=== PATIENT | male | born 1960 | race American Indian/Alaskan Native ===

== ENCOUNTER 2017-03-05 15:27 | Outpatient (CLI) | payer MEDICAID ==
--- NOTE | 2017-03-06 08:16 | XRay Report ---
Left ankle 3 views. Findings: There are no fractures or other acute findings. Small spur is seen arising from the plantar surface of the os calcis. Vascular calcifications are noted. Impression: No acute findings.
--- NOTE | 2017-03-06 08:17 | XRay Report ---
LEFT SHOULDER: History: Shoulder pain. Routine views demonstrate normal bony and soft tissue structures with normal joint alignment of the shoulder. IMPRESSION: Normal study.
--- NOTE | 2017-03-06 08:18 | XRay Report ---
LEFT HIP: History: Left hip pain. The bony architecture is intact without evidence of fracture or dislocation. No significant soft tissue abnormality is seen. IMPRESSION: Normal left hip.
--- NOTE | 2017-03-06 09:31 | XRay Report ---
LUMBAR SPINE RADIOGRAPHS: INDICATION: Lumbago with left-sided sciatica. Stroke in January 2016. COMPARISON: None similar. FINDINGS: AP, oblique and lateral lumbar spine radiographs demonstrate well segmented lumbar vertebrae, preserved in stature and alignment. Mild multilevel vertebral body degenerative spurring. Moderate mid to lower lumbar facet arthropathy also suspected. Moderate L5-S1 and possibly mild L3-L4 disc narrowing. No evidence of a pars defect. Intact SI joint. Nonobstructive bowel gas pattern. A surgical clip projects between the left 11th and 12 ribs. CONCLUSION: Lumbar spondylosis without acute radiographic abnormality, as described. Thank you for the opportunity to participate in this patient's care.
== END 2017-03-05 15:28 | disposition home or self-care (01) ==
LOC: XRAY 15:27
PROVIDERS: ATTEND Emergency Medicine
DX: M47.816 Spondylosis without myelopathy or radiculopathy, lumbar region (principal); M77.32 Calcaneal spur, left foot; M25.872 Other specified joint disorders, left ankle and foot; M12.88 Other specific arthropathies, not elsewhere classified, other specified site
CPT/HCPCS: 72110

== ENCOUNTER 2018-06-19 07:28 | Emergency (ER) | payer MEDICAID ==
--- NOTE | 2018-06-19 07:45 | Emergency Department Report ---
ED Psych HPI - General Stated Complaint: SUICIDAL THOUGHTS Time Seen by Provider: 06/19/18 07:42 Source: patient Mode of arrival: Ambulatory Limitations: No Limitations - History of Present Illness Initial Comments: Patient is a 57-year-old male that presents emergency room with complaints of suicidal ideations with plan. Patient states he wants to cut his wrist. Patient states the thoughts started this morning. Patient states he's had these thoughts about 5 or 6 years ago and he cut his left wrist. Patient has not had thoughts of suicide for a long time but has been under an abnormal amount of stress and making his thoughts of hurting himself have come back. The patient denies homicidal ideations. Patient denies audio and visual hallucinations. Patient denies physical complaints. Patient denies chest pain and shortness of breath. MD Complaint: suicidal ideation -: Sudden Associated Psychiatric Symptoms: depression, suicidal ideation History of same: Yes Quality: constant Improves With: none Worsens With: none Context: significant life stressor Associated Symptoms: denies other symptoms. denies: confusion, headache, shortness of breath, nausea, vomiting, syncope, insomnia, other Treatments Prior to Arrival: none, placed on mental he If Self Harm: admits thoughts of, has plan - Related Data Allergies Allergy/AdvReac Type Severity Reaction Status Date / Time No Known Allergies Allergy Unverified 03/05/17 15:04 ED Review of Systems ROS: Stated complaint: SUICIDAL THOUGHTS Other details as noted in HPI Constitutional: denies: chills, fever Eyes: denies: eye pain, eye discharge, vision change ENT: denies: ear pain, throat pain Respiratory: denies: cough, shortness of breath, wheezing Cardiovascular: denies: chest pain, palpitations Endocrine: no symptoms reported Gastrointestinal: denies: abdominal pain, nausea, diarrhea Genitourinary: denies: urgency, dysuria Musculoskeletal: denies: back pain, joint swelling, arthralgia Skin: denies: rash, lesions Neurological: denies: headache, weakness, paresthesias Psychiatric: depression, suicidal thoughts. denies: anxiety, auditory hallucinations, visual hallucinations, homicidal thoughts Hematological/Lymphatic: denies: easy bleeding, easy bruising ED Past Medical Hx - Past Medical History Previous Medical History?: Yes Hx Hypertension: Yes Hx CVA: Yes Hx Arthritis: Yes Additional medical history: high cholesterol - Surgical History Past Surgical History?: No - Family History Family history: no significant - Social History Smoking Status: Former Smoker Substance Use Type: None ED Physical Exam - General Limitations: No Limitations General appearance: alert, in no apparent distress - Head Head exam: Present: atraumatic, normocephalic - Eye Eye exam: Present: normal appearance - ENT ENT exam: Present: mucous membranes moist - Neck Neck exam: Present: normal inspection - Respiratory Respiratory exam: Present: normal lung sounds bilaterally. Absent: respiratory distress - Cardiovascular Cardiovascular Exam: Present: regular rate, normal rhythm. Absent: systolic murmur, diastolic murmur, rubs, gallop - GI/Abdominal GI/Abdominal exam: Present: soft, normal bowel sounds - Rectal Rectal exam: Present: deferred - Extremities Exam Extremities exam: Present: normal inspection - Back Exam Back exam: Present: normal inspection - Neurological Exam Neurological exam: Present: alert, oriented X3 - Psychiatric Psychiatric exam: Present: flat affect, suicidal ideation - Skin Skin exam: Present: warm, dry, intact, normal color. Absent: rash ED Course Vital Signs 06/19/18 06/19/18 07:50 10:22 Temperature 98.7 F Pulse Rate 89 Respiratory 17 18 Rate Blood Pressure 135/85 O2 Sat by Pulse 99 95 Oximetry - Reevaluation(s) Reevaluation #1: Patient will placed on a 1013 and mental health consult 06/19/18 08:21 Patient medically cleared. Patient be awaiting a transfer into appropriate psychiatric facility. Discussed plan of care and all results with patient. 06/19/18 14:37 ED Medical Decision Making - Lab Data Result diagrams: 06/19/18 08:40 06/19/18 08:40 - Medical Decision Making She has 57-year-old female presents to emergency room with suicidal ideations. Patient will remain on 1013 and await transfer to appropriate psychiatric facility. Patient has been medically cleared at this time. - Differential Diagnosis Si. Depression. Anxiety. Bipolar. Schizophrenia Critical care attestation.: If time is entered above; I have spent that time in minutes in the direct care of this critically ill patient, excluding procedure time. ED Disposition Clinical Impression: Suicidal ideations Disposition: [id number] PSY HOSP/PSY UNIT Is pt being admited?: No Does the pt Need Aspirin: No Condition: Stable Referrals: PRIMARY CARE, [Primary Care Provider] - 3-5 Days Time of Disposition: 14:38
[2018-06-19 08:56] LABS: Basophils % (Auto) 0.5 % (0.0-1.8); Eosinophils # (Auto) 0.1 K/mm3 (0.0-0.4); Eosinophils % (Auto) 3.4 % (0.0-4.3); Hematocrit 45.2 % (35.5-45.6); Lymphocytes # (Auto) 1.5 K/mm3 (1.2-5.4); Lymphocytes % (Auto) 34.8 % (13.4-35.0); Mean Corpuscular HGB Conc 33 % (32-34); Mean Corpuscular Hemoglobin 26 pg (28-32); Mean Corpuscular Volume 79 fl (84-94); Monocytes # (Auto) 0.4 K/mm3 (0.0-0.8); Monocytes % (Auto) 10.7 % (0.0-7.3); Platelet Count 236 K/mm3 (140-440); Red Cell Distribution Width 15.8 % (13.2-15.2)
[2018-06-19 09:19] LABS: BUN/Creatinine Ratio 10; Blood Urea Nitrogen 9 mg/dL (9-20); Hemolysis Index 18
[2018-06-19 10:20] LABS: Bilirubin,Urine NEG (Negative); Blood,Urine NEG (Negative); Color,Urine Yellow (Yellow); Hyaline Casts,Urine 3 /LPF; Mucus,Urine FEW /HPF
[2018-06-19 12:45] LABS: Amphetamine Screen,Urine PRESUMPTIVE NEGATIVE; Benzodiazepines Screen,Urine PRESUMPTIVE NEGATIVE; Cannabinoid Screen,Urine PRESUMPTIVE NEGATIVE; Cocaine Screen,Urine PRESUMPTIVE NEGATIVE; Methadone Screen,Urine PRESUMPTIVE NEGATIVE; Opiate Screen,Urine PRESUMPTIVE NEGATIVE
[2018-06-19 19:55] VITALS: BP 118/94
== END 2018-06-20 06:34 ==
LOC: ED 07:28
DX: F32.9 Major depressive disorder, single episode, unspecified (principal); I10 Essential (primary) hypertension; M19.90 Unspecified osteoarthritis, unspecified site; F41.9 Anxiety disorder, unspecified; E78.00 Pure hypercholesterolemia, unspecified; Z87.891 Personal history of nicotine dependence
CPT/HCPCS: 36415; 80048; 80307; 81001; 85025; 99285; G0480; 80320